=== PATIENT | female | born 1995 | race African-American/Black ===

== ENCOUNTER 2017-01-24 19:46 | Emergency (ER) | payer OTHER ==
[~2017-01-24] VITALS: Ht 160 cm; Wt 70.5 kg
[2017-01-24 19:54] VITALS: BP 138/73; PULSE 95; RESP 11; O2SAT 100
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
[2017-01-24 21:02] LABS: APPEARANCE,URINE HAZY (CLEAR,HAZY); COLOR,URINE YELLOW (YELLOW); OCCULT BLOOD,URINE NEGATIVE (NEGATIVE); UROBILINOGEN,URINE NORMAL (NORMAL)
--- NOTE | 2017-01-24 21:11 | NUR ---
heart tones auscultated at 165
[2017-01-24 21:25] VITALS: BP 123/71; PULSE 94; RESP 16; O2SAT 100
== END 2017-01-24 21:25 | disposition home or self-care (01) ==
LOC: SED 19:46 → EDBD 19:46 → EDSEX 19:46 → SED 21:25
DX: O99.89 Other specified diseases and conditions complicating pregnancy, childbirth and the puerperium (principal); M54.9 Dorsalgia, unspecified; M54.2 Cervicalgia; V53.5XXA Driver of pick-up truck or van injured in collision with car, pick-up truck or van in traffic accident, initial encounter; Y93.89 Activity, other specified; Y99.8 Other external cause status; Y92.410 Unspecified street and highway as the place of occurrence of the external cause; Z3A.15 15 weeks gestation of pregnancy